=== PATIENT | male | born 1930 | race Caucasian/White ===

== ENCOUNTER → 2016-08-23 | Outpatient (CLI) | payer OTHER ==
[~2016-08-23] MED LIST: APIX1TAB3 PO; DILT120C51 PO; METO25TA56 PO; TYLOTC500 PO
[2016-08-23 17:58] LABS: ALT/SGPT 27 U/L (12-78); AST/SGOT 14 U/L (15-37); BLOOD UREA NITROGEN 29 mg/dl (7-18); CALCIUM 9.1 mg/dl (8.5-10.1); CARBON DIOXIDE 31 mmol/L (21-32); CHLORIDE 106 mmol/L (98-107); GLUCOSE 95 mg/dl (70-99); POTASSIUM 4.8 mmol/L (3.5-5.1); SODIUM 143 mmol/L (136-145)
[2016-08-23 18:01] LABS: ALKALINE PHOSPHATASE 89 U/L (45-117); CHOLESTEROL 205 mg/dl (0-200); CHOLESTEROL/HDL RATIO 5.7; HDL CHOLESTEROL 36 mg/dl; LDL CHOLESTEROL CALCULATED 126 mg/dl; TRIGLYCERIDES 216 mg/dl (0-150); VERY LOW DENSITY LIPOPROT CALC 43 mg/dl
[2016-08-23 18:24] LABS: BASO % 0.5 %; BASO ABS # 0.03 K/uL (0-0.2); COMPLETE YES; EOS % 2.4 %; HEMATOCRIT 44.6 % (42-52); IG% 0.2 %; LYMPH % 43.8 %; LYMPH ABS # 2.74 K/uL (1.2-3.4); MEAN CELL VOLUME 91.8 fL (80-100); MEAN CORPUSCULAR HEMOGLOBIN 31.9 pg (25-34); MEAN CORPUSCULAR HGB CONC 34.8 g/dl (32-36); MEAN PLATELET VOLUME 12.9 fL (7.4-10.4); NEUT % 42.1 %; PLATELET COUNT 151 K/uL (130-400); RED BLOOD COUNT 4.86 M/uL (4.7-6.1); WHITE BLOOD COUNT 6.26 K/uL (4.8-10.8)
== END | disposition home or self-care (01) ==
LOC: C.LABBC 15:29
PROVIDERS: ATTEND Family Medicine
DX: E78.5 Hyperlipidemia, unspecified (principal); I10 Essential (primary) hypertension

== ENCOUNTER → 2017-07-31 | Outpatient (CLI) | payer OTHER | END | disposition home or self-care (01) | LOC: C.PATHSPEC 16:36 | PROVIDERS: ATTEND Physician Assistant | DX: L57.0 Actinic keratosis (principal) ==

== ENCOUNTER 2021-08-09 05:53 | Observation (INO) ==
--- NOTE | 2021-08-03 12:17 | Anesthesiology Consultation ---
Date of Service August 03, 2021 Assessment & Plan (1) Encounter for pre-operative examination: Chart Review Chart Review: Acceptable Risk for Surgery and Patient NOT seen in Pre Admission Testing Consults Requested none History Surgery Operation Date: 08/09/21 07:30 Proposed Procedures p Left Superficial Parotidectomy, Facial Nerve Monitoring - Mable Adler MD s Possible Left Radical Neck Dissection - Mable Adler MD Height/Weight Height: 5 ft 9.5 in Weight: 77.111 kg Allergies Allergy/AdvReac Type Severity Reaction Status Date / Time No Known Drug Allergies Allergy Mild Verified 08/03/21 10:46 Medications Home Medications Medication Instructions Recorded Confirmed Last Taken apixaban 5 mg tablet 5 mg PO BID #180 tab 11/09/20 08/03/21 Unknown metoprolol succinate 50 mg 50 mg PO DAILY #90 tab 02/10/21 08/03/21 Unknown tablet,extended release 24 hr amoxicillin 875 mg-potassium 1 tab PO BID #20 tab 08/01/21 08/03/21 Unknown clavulanate 125 mg tablet (Augmentin) atorvastatin 20 mg tablet 20 mg PO DAILY 08/01/21 08/03/21 Unknown diltiazem HCl 120 mg 120 mg PO HS 08/03/21 08/03/21 Unknown capsule,extended release 24 hr Past Medical History Medical History Atrial fibrillation History of basal cell carcinoma History of COVID-18 APRIL 2020>NO SYMPTOMS Hyperlipidemia Hypertension Neuropathy "MILD IN MY TOES" Parotid mass Past Family History Family History Father Hearing loss Hypertension Stroke Mother Breast cancer Other No family history of adverse response to anesthesia No family history of bleeding disorder Past Surgical History Surgical History History of arthroscopic knee surgery RT History of cataract surgery RT/LEFT History of colonoscopy History of hemorrhoidectomy History of Mohs micrographic surgery for skin cancer SHOULDERS AND LEG History of tonsillectomy History of tooth extraction Social History Smoking Status: Never smoker Hx Alcohol Use: Yes Alcohol type: beer alcohol intake frequency: 0-2 drinks per day Hx Substance Use: No substance use type: does not use Testing Electrocardiogram Date: 08/02/21 Findings: + NSR @ (1st degree AV block)
--- NOTE | 2021-08-07 08:06 | History & Physical Report ---
Date of Service August 07, 2021 Assessment & Plan (1) Parotid mass: Plan: Large 3 cm left parotid mass with erythema, fixed to skin, necrotic node on CT scan, needle biopsy showed possible squamous cell carcinoma, will need left parotidectomy with frozen section, if positive for squamous cell carcinoma will need left-sided neck dissection 2 through 5 level nodes. 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 (3) Atrial fibrillation: Plan: Holding Eliquis preop. History of Present Illness Chief Complaint: Left parotid swelling Primary Care Provider: Boris Holley MD This 89-year-old gentleman presented with acute onset of left parotid swelling in July, initially flattened small, suddenly became larger, CT scan documented necrotic node, needle aspirations indicates possible squamous cell carcinoma Allergies Allergy/AdvReac Type Severity Reaction Status Date / Time No Known Drug Allergies Allergy Mild Verified 08/03/21 10:46 Home Medications Medication Instructions Recorded Confirmed Type apixaban 5 mg tablet 5 mg PO BID #180 tab 11/09/20 08/03/21 Rx metoprolol succinate 50 mg 50 mg PO DAILY #90 tab 02/10/21 08/03/21 Rx tablet,extended release 24 hr amoxicillin 875 mg-potassium 1 tab PO BID #20 tab 08/01/21 08/03/21 Rx clavulanate 125 mg tablet (Augmentin) atorvastatin 20 mg tablet 20 mg PO DAILY 08/01/21 08/03/21 History diltiazem HCl 120 mg 120 mg PO HS 08/03/21 08/03/21 History capsule,extended release 24 hr Past Med/Surg History Medical History Atrial fibrillation History of basal cell carcinoma History of COVID-18 APRIL 2020>NO SYMPTOMS Hyperlipidemia Hypertension Neuropathy "MILD IN MY TOES" Parotid mass Surgical History History of arthroscopic knee surgery RT History of cataract surgery RT/LEFT History of colonoscopy History of hemorrhoidectomy History of Mohs micrographic surgery for skin cancer SHOULDERS AND LEG History of tonsillectomy History of tooth extraction Family History Father Hearing loss Hypertension Stroke Mother Breast cancer Other No family history of adverse response to anesthesia No family history of bleeding disorder Social History Smoking Status: Never smoker Second Hand Exposure: Yes (IN THE PAST); Hx Alcohol Use: Yes Alcohol type: beer Alcohol Intake Frequency Comment: 1 beer/day Hx Substance Use: No Preferred Language: Icelandic Contracting Specialist Required: No Beliefs That Will Affect Care: None marital status: / Current Living Situation: Alone [facility] current occupational status: retired Feels Safe at Home: Yes Assistive Devices: Glasses and Hearing Aid - Bilateral Physical Exam Constitutional: WD/WN, vitals as above Eyes: PERRL, conjunctivae normal, anicteric sclerae ENMT: external ear and nose normal, oropharynx normal Neck: trachea midline, no thyromegaly Noticeable 3 cm left parotid swelling with erythema, moderately firm, fixed Respiratory: normal respiratory effort, lungs clear to auscultation Cardiovascular: RRR, no murmur, no edema PG Care Time/CCT Total # of Minutes Spent Total Time Spent with Patient: Total time spent is greater than 50% in coordination of care (as documented) at patient's floor/unit and/or counseling patient: Coding Level of Care Code None Diagnoses Parotid mass K11.8 History of Mohs micrographic surgery for skin cancer Z85.828; Z98.890 Atrial fibrillation I48.91
[2021-08-09] MEDS ORDERED: ceFAZolin 2000MG 2,000 MG/15 ML SYR IV SCH (06:00)
[2021-08-09] MEDS ORDERED: LR 15ML/HR IV SCH (06:00)
[2021-08-09] MEDS ORDERED: fentaNYL citrate 100 MCG/2 ML VIAL ONE ×3 (06:52→12:46)
--- NOTE | 2021-08-09 06:54 | History & Physical Bridge Note ---
Date of Service August 09, 2021 History & Physical Bridge Note I have examined the patient, reviewed the History & Physical and in the interval since the performance of the History & Physical I have noted the following changes of clinical significance: Squamous cell left parotid, life threatening, no changes noted
[2021-08-09] MEDS ORDERED: LIDOCAINE 2%/EPINEPHRINE 1:100,000 20ML ONE (07:26)
[2021-08-09] MEDS ORDERED: BACITRACIN OINT 15 GM TUBE ONE (07:26)
[2021-08-09] MEDS ORDERED: SUCCINYLCHOLINE 100MG/5ML SYR IV ONE (08:17)
[2021-08-09] MEDS ORDERED: PROPOFOL IV EMULSION 10 MG/ML 20 ML VIAL IV ONE (08:17)
[2021-08-09] MEDS ORDERED: CISATRACURIUM BESYLATE IV SOLN 2 MG/ML 10 ML VIAL IV ONE (08:17)
[2021-08-09] MEDS ORDERED: PHENYLEPHRINE HCL 10 MG/ML VIAL ONE ×2 (10:35→15:17)
[2021-08-09] MEDS ORDERED: ALBUMIN HUMAN 5% 12.5 GM/250 ML VIAL IV ONE (12:20)
[2021-08-09] MEDS ORDERED: ATROPINE SULFATE 0.1 MG/ML 10ML SYR IV PRN (15:02)
[2021-08-09] MEDS ORDERED: fentaNYL citrate 100 MCG/2 ML VIAL IV PRN (15:02)
[2021-08-09] MEDS ORDERED: ePHEDrine sulfate 50 MG/ML AMP IV PRN (15:02)
[2021-08-09] MEDS ORDERED: LABETALOL HCL IV 5 MG/ML 20ML IV PRN (15:02)
[2021-08-09] MEDS ORDERED: HYDROmorphone INJ 1 MG/ML SYRINGE IV PRN (15:02)
[2021-08-09] MEDS ORDERED: PROMETHAZINE HCL 12.5 MG in SODIUM CHLORIDE 0.9% 50 ML IV PRN (15:02)
[2021-08-09] MEDS ORDERED: NALOXONE HCL 0.4 MG/1 ML VIAL/CARP IV PRN (15:02)
[2021-08-09] MEDS ORDERED: ONDANSETRON INJ 2 MG/ML 2 ML VIAL IV PRN ×2 (15:02→15:52)
[2021-08-09] MEDS ORDERED: ONDANSETRON INJ 2 MG/ML 2 ML VIAL ONE (15:17)
[2021-08-09] MEDS ORDERED: GLYCOPYRROLATE 0.2 MG/ML VIAL ONE (15:17)
[2021-08-09] MEDS ORDERED: NEOSTIGMINE METHYLSULFATE 1 MG/ML 10ML VIAL ONE (15:17)
--- NOTE | 2021-08-09 15:29 | XRay Report ---
XR cervical spine 1V CLINICAL HISTORY: INCORRECT COUNT IN OR TECHNIQUE: 1 images of the cervical spine were obtained. COMPARISON: None available at the time of this dictation. FINDINGS: Endotracheal tube is seen. Multiple leads project over the patient's chest and neck. Subcutaneous emp hysema is seen. No radiodense foreign body is seen and in particular no evidence of a hemostat within the field of view. IMPRESSION: No evidence of retained foreign body. ACT 112: Negative or not required by law. Electronically signed by: Franko Hartmann M.D. 08/09/2021 3:28 PM
[2021-08-09] MEDS ORDERED: oxyCODONE/ACETAMINOPHEN 5mg/325mg TAB PO PRN (15:52)
[2021-08-09] MEDS ORDERED: MoRPHine SULFATE 4 MG/ML 1 ML CARP\\VIAL IM STA (15:56)
[2021-08-09] MEDS ORDERED: CONVERT TO SALINE LOCK ONE (15:58)
[2021-08-09] MEDS ORDERED: LACTATED RINGER'S 1,000 ML IV SCH (16:00)
--- NOTE | 2021-08-09 16:15 | Operative Report ---
PG Post Operative Report Pre & Post Diagnosis Operation Date: 08/09/21 07:30 Pre-Op Diagnosis: Left Parotid Mass Post-Op Diagnosis: Left Parotid Mass Frozen section shows squamous cell carcinoma I identified the patient and participated in the time-out.: Yes Procedure Operation Date: 08/09/21 07:30 Actual Procedures p Left Parotidectomy, Facial Nerve Monitoring(Left) - Mable Adler MD s Left Radical Neck Dissection, Skin Rotation Flap(Left) - Mable Adler MD Surgeon Mable Adler MD Ancillary Services Manager Dr. Puga assisted greater than 75% of the procedure and performed at le Estimated Blood Loss 250 Findings Consistent with Post-Op Diagnosis Squamous cell carcinoma left parotid Specimens Left total parotidectomy, left neck nodes level 2-5 Drains Diomedes-Cardozo Anesthesia Type General Complications None Description of Procedure He was brought to the operating room, properly identified, prepped and draped in the usual sterile manner after general endotracheal anesthesia. Facial nerve monitoring was used for the entire procedure. The skin incision was parotid incision just anterior to the auricle curving around the lobule of the ear to the mastoid extending further posteriorly due to the involvement of the skin with the tumor and then curving anterior inferiorly 2 fingerbreadths below the angle of the mandible to the submandibular region. This had to be extended to a Schobinger incision with the posterior limb extending in a curvilinear fashion vertically down the left side of the neck to the mid clavicle. The incision was also extended anteriorly to the submandibular region. At first the parotid flap was elevated after making the incision with a 15 blade and then elevating the flap using the Metzenbaum scissors. Blunt sharp dissection was performed in the preauricular area exposing the tragal cartilage and also inferiorly just anterior to the sternocleidomastoid muscle freeing up the mass inferiorly. The tumor was fixed to the skin and a 3 x 2 cm area of excision of skin had to be performed along with the tumor. The tumor was densely adherent to the sternocleidomastoid muscle and had to be dissected free from the mastoid tip and sternocleidomastoid muscle sharply controlling for hemostasis with the bipolar cautery and also the harmonic scalpel. In this manner the facial nerve was exposed from superiorly and inferiorly and the facial nerve was identified using the nerve monitor. The nerve was followed anteriorly to the pes anserinus. The temporal and zygomatic branches were freed and the parotid was transected superiorly leaving a small portion of the parotid. The buccal and marginal mandibular branches were followed inferiorly and were noted to be displaced superiorly from the tumor. The tumor was adherent and tucked underneath the lower portion of the facial nerve and had to be dissected away from the facial nerve and from the masseteric muscles medial to the parotid extending into the deep lobe of the parotid in this manner the entire parotid with the tumor with a piece of the skin was dissected free and sent to pathology. Frozen section showed squamous cell carcinoma. At this point the incisions were extended and the anterior superior and posterior skin flaps were elevated using the #10 blade and then using the Metzenbaum scissors to elevate the skin flap. Hemostasis was controlled using the bipolar cautery, the Bovie, and the harmonic scalpel. Dissection was started inferiorly at the supra clavicular fossa preserving the transverse scapular artery and preserving the lowest branch of the cutaneous nerve but transecting most of the cutaneous nerves superiorly. Greater auricular nerve was followed to the Erb's point and the spinal accessory nerve was found and dissected superiorly and posteriorly to the trapezius muscle. The greater auricular nerve had to be transected and sacrificed. Level 5 nodes were freed by tax dissecting just anterior to the trapezius muscle and then following the spinal accessory nerve superiorly. Above the spinal accessory nerve the small area of dissection was performed freeing the level 5 nodes from the mastoid tip and from the sternocleidomastoid posteriorly this was tucked underneath the spinal accessory nerve as 1 packet. Sternocleidomastoid muscle was freed and retracted using a Roxy drain and the packet was dissected from the scalene muscles and from the omohyoid muscle and then dissected free inferiorly from the jugular vein and then delivered anteriorly underneath the sternocleidomastoid muscle. Further dissection was performed along the jugular vein extending superiorly into the level 2 3 and 4 nodes. Omohyoid was followed anteriorly as the inferior border of the dissection. Submandibular gland was identified superiorly as the superior border of the dissection. Medial dissection with at the strap muscles and the airway. The spinal accessory nerve and the jugular were followed into the area just posterior to the digastric muscle and then the posterior packet of level 5 nodes were dissected free from the jugular and sent separately from the level 234 nodes which were also from the jugular vein and these were sent separately for pathology. In this manner the functional neck dissection was performed preserving the muscles in the major nerves in the jugular and the carotid. Carotid sheath was identified along with the vagus and the ansa hypoglossal which were preserved. Hypoglossal nerve was medial to the digastric and was not touched. Wound was irrigated with copious amounts of saline and hemostasis was further controlled using the bipolar cautery and silk ties. Several branches of the jugular vein had to be tied using silk ties. There was a 2 x 3 cm defect in the postauricular area just below the ear and over the mastoid. This had to be corrected using a skin advancement flap. The superior flap was advanced posteriorly and was sewn to the posterior skin flap over the trapezius muscle Piece of the triangular tip of this area had to be resected to allow closure. The incision was closed with interrupted 3-0 Vicryl sutures on the platysma layer and on the subcutaneous layer. A Diomedes-Cardozo drain was placed in the depth of the wound exiting in the supraclavicular area. This was sewn in place using a 3-0 silk suture. The skin was closed with skin janie. Light pressure dressing was placed. He tolerated procedure well and was taken recovery area in satisfactory condition. I attest to the content of the Intraoperative Record and any orders documented therein. Any exceptions are noted below.
[2021-08-09 16:16] LABS: Hematocrit (blood only) 37.7 % (42-52); Hemoglobin 12.7 g/dL (14.0-18.0)
[2021-08-09] MEDS ORDERED: MoRPHine SULFATE 4 MG/ML 1 ML CARP\\VIAL IV PRN (16:24)
--- NOTE | 2021-08-09 17:52 | Anesthesiology Progress Note ---
Date of Service August 09, 2021 Anesthesia Post Procedure Vital Signs Vital Signs: Temp Pulse Pulse Resp BP Pulse Ox 08/09/21 17:25 76 20 115/53 L 95 08/09/21 17:10 77 21 127/54 L 96 08/09/21 17:00 36.8 C 82 20 107/51 L 97 08/09/21 16:50 73 19 122/57 L 94 08/09/21 16:40 73 19 122/51 L 94 08/09/21 16:30 76 21 132/50 L 94 08/09/21 16:20 80 18 136/76 95 08/09/21 16:10 77 19 136/57 L 95 08/09/21 16:00 76 19 136/55 L 95 08/09/21 15:53 36.4 C L 78 20 144/58 H 97 08/09/21 06:15 36.6 C 64 18 149/77 H 97 Pain Intensity Left Neck: Pain Intensity: 2 Transfer of Care Handoff Completed per policy Notes Mental Status: alert / awake / arousable Patient Amnestic to Procedure: Yes Nausea / Vomiting: adequately controlled Pain: adequately controlled Airway Patency, RR, SpO2: stable & adequate BP & HR: stable & adequate Hydration State: stable & adequate Anesthetic Complications: no major complications apparent
[2021-08-10] MEDS: dilTIAZem ER 120 MG CAPCR PO SCH (07:59)
[2021-08-10] MEDS: METOPROLOL TARTRATE 50 MG TAB PO SCH (07:59)
--- NOTE | 2021-08-10 15:56 | Ears,Nose,Throat Progress Note ---
Date of Service August 10, 2021 Assessment & Plan (1) Urinary retention: Plan: Will observe for another day. (2) Squamous cell carcinoma of parotid: Admission and Anticipated Discharge Date Admission Date: August 09, 2021 Subjective This 89-year-old gentleman status post left parotidectomy with left functional neck dissection, doing well regarding the neck. However he is unable to urinate had to be straight cathed x2. Physical Exam Constitutional: WD/WN, vitals as above Eyes: PERRL, conjunctivae normal, anicteric sclerae ENMT: external ear and nose normal, oropharynx normal Neck: Incision site clean, flaps in place, no sign of hematoma Results & Data ([facility]) Vital Signs (Past 12 Hours) Vital Signs Temp Pulse Resp BP Pulse Ox 08/10/21 14:42 37.5 C 64 16 121/63 93 08/10/21 11:42 37 C 62 16 115/65 92 08/10/21 08:02 95 08/10/21 07:06 37.2 C 78 16 134/65 93 08/10/21 06:12 97 08/10/21 06:11 96 08/10/21 06:10 95 08/10/21 06:09 97
[2021-08-11] MEDS: METOPROLOL TARTRATE 50 MG TAB PO SCH (09:30)
[2021-08-11] MEDS: dilTIAZem ER 120 MG CAPCR PO SCH (09:30)
--- NOTE | 2021-08-11 13:44 | Discharge Summary ---
Date of Service August 11, 2021 Admission HPI Per Admitting Provider This 89-year-old gentleman presented with acute onset of left parotid swelling in July, initially flattened small, suddenly became larger, CT scan documented necrotic node, needle aspirations indicates possible squamous cell carcinoma Admission Exam (Per Admitting) Constitutional WD/WN, vitals as above Eyes PERRL, conjunctivae normal, anicteric sclerae ENMT external ear and nose normal, oropharynx normal Neck trachea midline, no thyromegaly Respiratory normal respiratory effort, lungs clear to auscultation Cardiovascular RRR, no murmur, no edema Discharge Data Procedures Performed Operation Date: 08/09/21 07:30 Actual Procedures p Left Parotidectomy, Facial Nerve Monitoring(Left) - Mable Adler MD s Left Radical Neck Dissection, Skin Rotation Flap(Left) - Mable Adler MD Hospital Course (1) Urinary retention: Finally able to urinate. (2) Squamous cell carcinoma of parotid: s/p L parotid, functional neck See me Saturday for drain removal
== END 2021-08-11 13:37 | disposition home or self-care (01) ==
LOC: 3E 05:53 → ASU 05:53